=== PATIENT | male | born 1980 | race Caucasian/White ===

== ENCOUNTER 2019-03-17 01:25 | Emergency (ER) | payer SELFPAY ==
[~2019-03-17] VITALS: Ht 180.3 cm; Wt 86.6 kg
[2019-03-17 01:33] VITALS: Ht 180.3 cm; Wt 86.6 kg
[2019-03-17 03:35] VITALS: BP 141/96
== END 2019-03-17 03:35 | disposition home or self-care (01) ==
LOC: ED 01:25
DX: K04.7 Periapical abscess without sinus (principal)